=== PATIENT | male | born 1945 | race Caucasian/White ===

== ENCOUNTER → 2016-05-13 | Outpatient (CLI) | payer BC ==
[~2016-05-13] MED LIST: ASPI-232 PO; MULTTAB58 PO
--- NOTE | 2016-05-13 08:55 | DIAGNOSTIC IMAGING REPORT ---
KUB HISTORY: Kidney stones. N40.1 Benign prostatic hyperplasia with urinary obstruction COMPARISON: [facility] 05/22/2015. FINDINGS: The bowel gas pattern is unremarkable. There are no dilated loops of small bowel to suggest an obstruction. The renal shadows are mostly obscured by overlying bowel gas. No renal calculi identified this time. Moderate stool seen within the colon. No ureteral calculi. Degenerative changes within the lumbar spine are again noted. No pneumoperitoneum or pneumatosis. IMPRESSION: 1. Renal shadows obscured by overlying bowel gas. No definite renal or ureteral calculi. 2. Moderate stool within the colon. Electronically signed by: Brian Garcia M.D. 05/13/2016 8:54 AM Dictated Date/Time: 05/13/2016 8:51 AM
== END | disposition home or self-care (01) ==
LOC: C.RADBC 08:14
PROVIDERS: ATTEND Urology
DX: N40.1 Benign prostatic hyperplasia with lower urinary tract symptoms (principal)

== ENCOUNTER → 2017-05-07 | Outpatient (CLI) | payer BC ==
--- NOTE | 2017-05-07 10:53 | DIAGNOSTIC IMAGING REPORT ---
KUB HISTORY: N20.0 [id number] Benign prostatic hyperplasia with uri COMPARISON: KUB 05/13/2016. FINDINGS: The bowel gas pattern is non-obstructive. There is no organomegaly. Probable small phlebolith of the right hemipelvis. Punctate radiodensity projecting over the inferior pole right kidney may reflect a small renal calculus. No ureteral calculi identified.. Left renal shadow is partially obscured by bowel gas. No pneumoperitoneum or pneumatosis. No fracture. Next or scoliosis of the lumbar spine. Multilevel endplate spurring with intervertebral disc space narrowing. IMPRESSION: 1. Punctate radiodensity projecting over the inferior pole right kidney suggests small renal calculus. No ureteral calculi identified. 2. Nonobstructive bowel gas pattern. Electronically signed by: Angel Ignacio M.D. 05/07/2017 10:51 AM Dictated Date/Time: 05/07/2017 10:50 AM
--- NOTE | 2017-05-07 10:57 | DIAGNOSTIC IMAGING REPORT ---
L WRIST MIN 3 VIEWS ROUTINE CLINICAL HISTORY: M25.539 Wrist [id number] pain COMPARISON: None. DISCUSSION: Moderate degenerative change of the intercarpal as well as carpometacarpal joints. This is most prominent at the first carpometacarpal level. No evidence for fracture or dislocation. No significant osteopenia. There is no evidence for soft tissue swelling. IMPRESSION: Moderate degenerative change throughout the intercarpal as well as carpometacarpal joints. Significant degenerative change first carpometacarpal joint. No acute bony abnormality. The above report was generated using voice recognition software. It may contain grammatical, syntax or spelling errors. Electronically signed by: Jerald Parker M.D. 05/07/2017 10:56 AM Dictated Date/Time: 05/07/2017 10:54 AM
== END | disposition home or self-care (01) ==
LOC: C.RAD1850 10:12
PROVIDERS: ATTEND Urology
DX: N40.1 Benign prostatic hyperplasia with lower urinary tract symptoms (principal); N20.0 Calculus of kidney; M25.539 Pain in unspecified wrist

== ENCOUNTER → 2017-07-20 | Outpatient (CLI) | payer BC ==
--- NOTE | 2017-07-20 09:49 | DIAGNOSTIC IMAGING REPORT ---
RENAL ULTRASOUND CLINICAL HISTORY: Gross hematuria. COMPARISON STUDY: Renal ultrasound March 04, 2010, CT of the abdomen and pelvis January 10, 2012 and KUB May 07, 2017. TECHNIQUE: Sonography of the kidneys and the urinary bladder was performed. FINDINGS: The right kidney measures 10.1 cm in maximal dimension and the left measures 10.6 cm. There is no hydronephrosis. No calculi are identified by sonography. There is a 1.6 cm left renal cyst. Renal echogenicity, size and cortical thickness are normal. Both ureteral jets were identified. IMPRESSION: 1. No hydronephrosis. 2. 1.6 cm left renal cyst. Electronically signed by: Osman Juarez M.D. 07/20/2017 9:47 AM Dictated Date/Time: 07/20/2017 9:46 AM
== END | disposition home or self-care (01) ==
LOC: C.ULTR 08:49
PROVIDERS: ATTEND Urology
DX: R31.0 Gross hematuria (principal); N28.1 Cyst of kidney, acquired

== ENCOUNTER → 2017-07-21 | Outpatient (CLI) | payer BC | END | disposition home or self-care (01) | LOC: C.PATHSPEC 17:27 | PROVIDERS: ATTEND Urology | DX: Z00.00 Encounter for general adult medical examination without abnormal findings (principal); J34.2 Deviated nasal septum; J30.89 Other allergic rhinitis; N40.1 Benign prostatic hyperplasia with lower urinary tract symptoms; N20.0 Calculus of kidney ==